=== PATIENT | male | born 1990 | race Two or more races ===

== ENCOUNTER 2019-01-27 18:42 | Emergency (ER) | payer SELFPAY ==
[2019-01-27] MEDS ORDERED: Lidocaine 1% with EPINEPHrine 1:100,000 20 ML MDV INJECT ONE (19:22)
--- NOTE | 2019-01-27 19:28 | EDM.PDOC ---
ED HPI GENERAL MEDICAL PROBLEM - General Chief Complaint: Skin Complaint Stated Complaint: PT HAS BOIL Time Seen by Provider: 01/27/19 19:16 - History of Present Illness INITIAL COMMENTS - FREE TEXT/NARRATIVE: HISTORY AND PHYSICAL: History of present illness: The patient is a 28-year-old man who presents with complaints of 3 days of 2 bumps to his inner right thigh area that he is concerned as an abscess. He says he has had one in the past and had it drained and he feels that this is similar. He has no systemic complaints of fever chills nausea vomiting and eating and drinking normally. He says that when the first bump showed up he tried to pop it with a needle and he says it seemed to get worse. The second bump has shown up over the last 24 hours. He says he has been putting Vaseline on it but has not manipulated the area. He denies any pain or swelling to his testicles and says that these areas are not close to his genital area. Review of systems: As per history of present illness and below otherwise all systems reviewed and negative. Past medical history: As per history of present illness and as reviewed below otherwise noncontributory. Surgical history: As per history of present illness and as reviewed below otherwise noncontributory. Social history: No reported history of drug or alcohol abuse. Family history: As per history of present illness and as reviewed below otherwise noncontributory. Physical exam: General: Well-developed well-nourished man who is mildly overweight and nontoxic. Vital signs are noted by me HEENT: Atraumatic, normocephalic, negative for conjunctival pallor or scleral icterus, mucous membranes moist, throat clear, neck supple, nontender, trachea midline. Lungs: Clear to auscultation, breath sounds equal bilaterally, chest nontender. Heart: S1S2, regular rate and rhythm no overt murmurs Abdomen: Soft, nondistended, nontender. NABS. Negative for costovertebral tenderness. Pelvis: Deferred Genitourinary: Deferred. Rectal: Deferred. Extremities: Atraumatic, negative for cords or calf pain. Neurovascular unremarkable. Neuro: Awake, alert, oriented. Cranial nerves II through XII unremarkable. Cerebellum unremarkable. Motor and sensory unremarkable throughout. Exam nonfocal. Skin: At the inner aspect of the right side there are 2 raised areas that are fluctuant the first measuring 1 cm x 0.5 cm and the second measuring 1.5 cm x 1 cm. There is no surrounding erythema and there is no lymphadenopathy in the inguinal area. These are not in proximity to the testicle or the perineum proper but sit in the inner thigh area. There is tenderness with palpation. Diagnostics: [] Therapeutics: Lidocaine with epinephrine for incision and drainage, local wound care per nursing, bactrim Procedure note: After the procedure was explained to the patient the area was prepped with Betadine and 1% lidocaine with epinephrine was infused in the 2 areas. Using an 11 blade scalpel an incision was made at the point of most swelling and a small amount of pus was expressed from the larger of the wounds and a small amount of pus was expressed from the smaller. As the abscess cavity is very shallow a pack was not applied and the patient tolerated the procedure well. The patient was informed that the larger of the 2 is more fleshy and has some component of a skin growth/tach and may need to be reevaluated once the infection has cleared. He states understanding. Dressing was applied by nursing Impression: Right inner thigh abscesses Definitive disposition and diagnosis as appropriate pending reevaluation and review of above. right inner thigh Pain Score (Numeric/FACES): 9 - Related Data Allergies Allergy/AdvReac Type Severity Reaction Status Date / Time No Known Allergies Allergy Verified 01/27/19 19:10 Home Meds: Home Meds . [No Known Home Meds] 06/27/18 [History] Past Medical History - Past Health History Medical/Surgical History: Denies Medical/Surgical History Musculoskeletal History: Reports: Fracture - Past Surgical History Musculoskeletal Surgical History: Reports: Other (See Below) Other Musculoskeletal Surgeries/Procedures:: surgery to right ring finger Social & Family History - Family History Family Medical History: Noncontributory - Tobacco Use Smoking Status *Q: Never Smoker Second Hand Smoke Exposure: No - Caffeine Use Caffeine Use: Reports: Energy Drinks - Recreational Drug Use Recreational Drug Use: No ED ROS GENERAL - Review of Systems Review Of Systems: ROS reveals no pertinent complaints other than HPI. ED EXAM, SKIN/RASH Exam: See Below (See dictation) Course - Vital Signs Last Recorded V/S: Last Vital Signs Temp 36.2 C 01/27/19 19:05 Pulse 64 01/27/19 19:05 Resp 17 01/27/19 19:05 BP 124/83 01/27/19 19:05 Pulse Ox 99 01/27/19 19:05 - Orders/Labs/Meds Meds: Medications Discontinued Medications Generic Name Dose Route Start Last Admin Trade Name Lee PRN Reason Stop Dose Admin Lidocaine/Epinephrine 20 ml 01/27/19 19:22 Xylocaine 1% With Epinephrine 1:100,000 INJECT 01/27/19 19:23 ONETIME ONE Departure - Departure Time of Disposition: 20:01 Disposition: Home, Self-Care 01 Condition: Good Clinical Impression: Abscess - Discharge Information Referrals: PCP,None [Primary Care Provider] - Forms: ED Department Discharge Additional Instructions: The following information is given to patients seen in the emergency department who are being discharged to home. This information is to outline your options for follow-up care. We provide all patients seen in our emergency department with a follow-up referral. The need for follow-up, as well as the timing and circumstances, are variable depending upon the specifics of your emergency department visit. If you don't have a primary care physician on staff, we will provide you with a referral. We always advise you to contact your personal physician following an emergency department visit to inform them of the circumstance of the visit and for follow-up with them and/or the need for any referrals to a consulting specialist. The emergency department will also refer you to a specialist when appropriate. This referral assures that you have the opportunity for followup care with a specialist. All of these measure are taken in an effort to provide you with optimal care, which includes your followup. Under all circumstances we always encourage you to contact your private physician who remains a resource for coordinating your care. When calling for followup care, please make the office aware that this follow-up is from your recent emergency room visit. If for any reason you are refused follow-up, please contact the [facility] emergency department at and ask to speak to the emergency department charge nurse. [facility] Primary care- Internal Medicine and Family [address] [id number] Expect drainage from the area and cleansed the area with mild soap and water in the shower at least twice a day and apply bacitracin or Neosporin. Please cover with a breathable dressing and not a Band-Aid. Please take antibiotics until they are finished and schedule a follow-up appointment with one of her providers reevaluation and further care. Return to ER as needed and as discussed. Use [id number] Tylenol or ibuprofen for pain management
[2019-01-27 20:02] VITALS: BP 125/70
[2019-01-27] MEDS ORDERED: Sulfamethoxazole/Trimethoprim 800-160 MG Tab PO ONE (20:03)
== END 2019-01-27 20:16 | disposition home or self-care (01) ==
LOC: MW.ED 18:42
DX: L02.415 Cutaneous abscess of right lower limb (principal)
CPT/HCPCS: 10060; 99282; A9270; 99283